=== PATIENT | female | born 1990 | race American Indian/Alaskan Native ===

== ENCOUNTER 2016-08-09 10:58 | Outpatient (CLI) | payer MEDICAID ==
[2016-08-09] MEDS ORDERED: LACTATED RINGERS 500 ML IV ONE (11:08)
[2016-08-09 11:24] LABS: Urine Drugs of Abuse Note Disclamer
[2016-08-09] MEDS ORDERED: LACTATED RINGERS 1,000 ML ONE ×2 (11:29→12:47)
[2016-08-09 11:40] LABS: Bacteria,Urine 1+ /HPF (Negative); Bilirubin,Urine NEG (Negative); Blood,Urine NEG (Negative); Ketones,Urine 80 mg/dL (Negative); Leukocyte Esterase,Urine NEG (Negative); Mucus,Urine 3+ /HPF; Nitrite,Urine NEG (Negative); Urobilinogen,Urine < 2.0 mg/dL (<2.0)
[2016-08-09] MEDS ORDERED: LACTATED RINGERS 1,000 ML IV ONE ×2 (12:45→13:30)
[2016-08-09] MEDS ORDERED: ZOFRAN IV ONE (13:00)
[2016-08-09 13:18] LABS: Eosinophils % (Auto) 0.2 % (0.0-4.3); Hematocrit 27.4 % (30.3-42.9); Hemoglobin 8.6 gm/dl (10.1-14.3); Mean Corpuscular HGB Conc 31 % (30-34); Mean Corpuscular Volume 79 fl (79-97); Platelet Count 178 K/mm3 (140-440); Red Blood Count 3.47 M/mm3 (3.65-5.03); Red Cell Distribution Width 14.7 % (13.2-15.2); White Blood Count 7.3 K/mm3 (4.5-11.0)
[2016-08-09 13:23] LABS: Mean Corpuscular Hemoglobin 25 pg (28-32)
[2016-08-09 13:42] LABS: Alanine Aminotransferase 6 units/L (7-56); Albumin 3.3 g/dL (3.9-5); Albumin/Globulin Ratio 1.2 %; Alkaline Phosphatase 51 units/L (35-129); Amylase 50 units/L (27-131); Anion Gap 18 mmol/L; Bilirubin,Total 0.3 mg/dL (0.1-1.2); Blood Urea Nitrogen 7 mg/dL (7-17); Calcium 8.3 mg/dL (8.4-10.2); Carbon Dioxide 22 mmol/L (22-30); Chloride 100.7 mmol/L (98-107); Glucose 82 mg/dL (65-100); Lipase 21 units/L (13-60); Potassium 3.7 mmol/L (3.6-5.0); Sodium 137 mmol/L (137-145)
== END 2016-08-09 14:53 | disposition home or self-care (01) ==
LOC: TRG 10:58
PROVIDERS: ATTEND Obstetrics & Gynecology
DX: O26.892 Other specified pregnancy related conditions, second trimester (principal); Z3A.22 22 weeks gestation of pregnancy
CPT/HCPCS: 36415; 80053; 80307; 81001; 82150; 83690; 85025; 96360; 96361; 96374; J2405; J7120

== ENCOUNTER 2017-12-02 11:49 | Emergency (ER) | payer MEDICAID ==
[2017-12-02 11:57] VITALS: BP 119/75
[2017-12-02] MEDS ORDERED: ROBITUSSIN PO ONE (12:29)
[2017-12-02] MEDS ORDERED: TYLENOL PO ONE (12:29)
--- NOTE | 2017-12-02 13:10 | Emergency Department Report ---
Minor Respiratory - HPI Chief Complaint: Upper Respiratory Infection Stated Complaint: HURTING NOT EATING, CHEST PAIN Time Seen by Provider: 12/02/17 12:23 Duration: 3 Days Pain Location: Throat, Nose Severity: mild Minor Respiratory: Yes Rhinorrhea, Yes Sore Throat, Yes Able to Tolerate Fluids , Yes Cough, Yes Sick Contacts (daughter and niece was sick last week), No Ear Pain, No Hemoptysis, No Chest Pain, No Shortness of Breath, No Fever Other History: This is a 27-year-old -[place] female who presents with sore throat, congestion, sinus pressure, cough and nausea. Patient reports symptoms started 3 days ago initially with only a sore throat which she is taking Senior's with no improvement of symptoms. Patient reports Sunday symptoms increase she was having pain with swallowing solids. She started taken ibuprofen on with no improvement of symptoms. Patient reports her daughter and niece both had upper respiratory infection last week but now feeling better. Last menstrual period 09/21/2017. Patient is concerned she may possibly be . A1. Denies fever, vomiting, ear pain, dizziness , and abdominal pain. ED Review of Systems ROS: Stated complaint: HURTING NOT EATING, CHEST PAIN Other details as noted in HPI Constitutional: denies: chills, fever ENT: throat pain, congestion. denies: ear pain, dental pain, hearing loss, epistaxis Respiratory: cough. denies: shortness of breath, wheezing Cardiovascular: denies: chest pain, palpitations, edema, syncope Gastrointestinal: nausea. denies: abdominal pain, vomiting, diarrhea Neurological: denies: headache, weakness, numbness, paresthesias Psychiatric: denies: anxiety, depression ED Past Medical Hx - Past Medical History Hx Hypertension: No Hx Diabetes: No Hx Deep Vein Thrombosis: No Hx Renal Disease: No Hx Sickle Cell Disease: No Hx Seizures: No Hx Asthma: Yes Hx HIV: No - Surgical History Past Surgical History?: No - Social History Smoking Status: Never Smoker Substance Use Type: None - Medications Home Medications: Home Medications Medication Instructions Recorded Confirmed Last Taken Type Ondansetron [Zofran Odt] 4 mg PO TID PRN #15 tab.rapdis 12/02/17 Unknown Rx Minor Respiratory Exam - Exam General: Vital signs noted. No distress. Alert and acting appropriately. HEENT: Yes Pharyngeal Erythema (tonsils enlarged without exudate), Yes Moist Mucous Membranes, Yes Rhinorrhea (turbinate is mildly congested with clear discharge), No Pharyngeal Exudates, No Conjuctival Injection, No Frontal Tenderness, No Maxillary Tenderness Ear: Neither TM Bulge, Neither TM Erythema, Neither EAC Pain, Neither EAC Discharge Neck: Yes Supple, No Adenopathy Lungs: Yes Good Air Exchange, No Wheezes, No Ronchi, No Stridor, No Cough, No Labored Respirations, No Retractions, No Use of Accessory Muscles, No Other Abnormal Lung Sounds Heart: Yes Regular, No Murmur Abdomen: Yes Normal Bowel Sounds, No Tenderness, No Peritoneal Signs Skin: No Rash, No Edema Neurologic: Alert and oriented, no deficits. Musculoskeletal: Unremarkable. ED Course Vital Signs 12/02/17 11:52 Temperature 9837 F H Pulse Rate 84 Respiratory 19 Rate Blood Pressure 119/75 O2 Sat by Pulse 99 Oximetry ED Medical Decision Making - Medical Decision Making 27 y.o. female that presents with URI symptoms. Patient examined by me and stable. No distress noted. Vitals normal. Urinalysis and urine hCg obtained. Given guaifenesin 200 mg po and tylenol 650 mg po once in ER. Urine hCg positive, all other labs WNL. Reviewed results with patient. Discharged home stable. Start zofran 4 mg po tid prn for nausea. Encouraged to do supportive care for URI. Follow up with PAPER MACHINE SUPERVISOR in 2-3 days. Critical care attestation.: If time is entered above; I have spent that time in minutes in the direct care of this critically ill patient, excluding procedure time. ED Disposition Clinical Impression: Upper respiratory infection, viral, confirmed by positive urine test Disposition: TO HOME OR SELFCARE Is pt being admited?: No Does the pt Need Aspirin: No Condition: Stable Instructions: Morning Sickness (ED), (ED), Upper Respiratory Infection (ED) Additional Instructions: Increase fluid intake and rest. Wash hands frequently. Continue taking tylenol to control fever and pain. F/U with PAPER MACHINE SUPERVISOR and Primary Care Provider in 2-3 days. Return to ER if fever, SOB, or difficulty breathing after 48 hours of supportive care. Prescriptions: Ondansetron [Zofran Odt] 4 mg PO TID PRN #15 tab.rapdis PRN Reason: Nausea Referrals: FRANCIA PINEDA MD [Primary Care Provider] - 3-5 Days [facility] [Provider [facility]] - 3-5 Days [facility] [Provider Group] - 3-5 Days Time of Disposition: 13:33 Print Language: CYPRIOT
[2017-12-02 13:17] LABS: HCG Qualitative,Urine Positive (Negative)
[2017-12-02 13:18] LABS: Bacteria,Urine 2+ /HPF (Negative); Bilirubin,Urine NEG (Negative); Blood,Urine SM (Negative); Color,Urine Yellow (Yellow); Mucus,Urine 2+ /HPF
== END 2017-12-02 13:52 | disposition home or self-care (01) ==
LOC: ED 11:49
DX: O99.511 Diseases of the respiratory system complicating pregnancy, first trimester (principal); J06.9 Acute upper respiratory infection, unspecified; J45.909 Unspecified asthma, uncomplicated; Z3A.01 Less than 8 weeks gestation of pregnancy
CPT/HCPCS: 81001; 81025; 99283

== ENCOUNTER 2017-12-26 21:19 | Emergency (ER) | payer OTHER, MEDICAID ==
[2017-12-26 21:45] VITALS: BP 103/68
[2017-12-26] MEDS ORDERED: TYLENOL ONE (21:51)
[2017-12-26] MEDS: TYLENOL PO ONE (21:55)
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
== END 2017-12-27 01:40 | disposition home or self-care (01) ==
LOC: ED 21:19
DX: O9A.211 Injury, poisoning and certain other consequences of external causes complicating pregnancy, first trimester (principal); M54.6 Pain in thoracic spine; J45.909 Unspecified asthma, uncomplicated; V49.49XA Driver injured in collision with other motor vehicles in traffic accident, initial encounter; Y93.89 Activity, other specified; Y92.89 Other specified places as the place of occurrence of the external cause; Y99.8 Other external cause status
CPT/HCPCS: 36415; 76801; 76817; 84702

== ENCOUNTER 2018-01-03 05:49 | Emergency (ER) | payer MEDICAID, OTHER ==
[2018-01-03 06:27] LABS: Basophils % (Auto) 0.4 % (0.0-1.8); Eosinophils # (Auto) 0.1 K/mm3 (0.0-0.4); Eosinophils % (Auto) 0.9 % (0.0-4.3); Hematocrit 36.8 % (30.3-42.9); Hemoglobin 12.4 gm/dl (10.1-14.3); Lymphocytes # (Auto) 1.8 K/mm3 (1.2-5.4); Lymphocytes % (Auto) 29.1 % (13.4-35.0); Mean Corpuscular HGB Conc 34 % (30-34); Mean Corpuscular Hemoglobin 30 pg (28-32); Mean Corpuscular Volume 89 fl (79-97); Monocytes # (Auto) 0.4 K/mm3 (0.0-0.8); Monocytes % (Auto) 7.3 % (0.0-7.3); Platelet Count 169 K/mm3 (140-440); Red Blood Count 4.15 M/mm3 (3.65-5.03); Red Cell Distribution Width 14.2 % (13.2-15.2)
[2018-01-03 06:43] LABS: Alanine Aminotransferase 9 units/L (7-56); Albumin 3.6 g/dL (3.9-5); BUN/Creatinine Ratio 16; Blood Urea Nitrogen 8 mg/dL (7-17); Calcium 8.6 mg/dL (8.4-10.2); Hemolysis Index 4
[2018-01-03 08:48] LABS: Bilirubin,Urine NEG (Negative); Blood,Urine NEG (Negative); Color,Urine Yellow (Yellow); HCG Qualitative,Urine Positive (Negative); Mucus,Urine FEW /HPF; Protein,Urine <15 mg/dL mg/dL (Negative)
[2018-01-03] MEDS ORDERED: MACROBID PO ONE (10:17)
[2018-01-03] MEDS ORDERED: TYLENOL PO ONE (10:17)
--- NOTE | 2018-01-03 11:09 | Emergency Department Report ---
ED HPI - General Chief complaint: Abdominal Pain Stated complaint: ABD PAIN/13 WKS PREG Time Seen by Provider: 01/03/18 10:10 Source: patient Mode of arrival: Ambulatory Limitations: No Limitations - History of Present Illness Initial comments: 27-year-old female past medical history none, 13 weeks presents with complaint of one day of feeling slightly dizzy with lower abdominal pain radiating to back. Patient denies any vaginal bleeding. States she vomited once yesterday but does not feel nauseous at this moment. Patient is currently awake alert and oriented 3. Nonacute distress. Denies alcohol or drug use. Onset/Timin -: days(s) Location: abdomen Severity: moderate Quality: aching Consistency: intermittent Improves with: none Worsens with: none Associated symptoms: headache Vaginal bleeding: none :: Yes Number of weeks : 13 Last menstrual period: 10/13/17 - Related Data Previous Rx's Medication Instructions Recorded Last Taken Type Ondansetron [Zofran Odt] 4 mg PO TID PRN #15 tab.rapdis 12/02/17 Unknown Rx Acetaminophen [Acetaminophen TAB] 500 mg PO Q6HR PRN #20 tablet 01/03/18 Unknown Rx Nitrofurantoin Monohyd/M-Cryst 100 mg PO BID #14 capsule 01/03/18 Unknown Rx [Macrobid 100 mg Capsule] Ondansetron [Zofran Odt] 4 mg PO Q8H PRN #10 tab.rapdis 01/03/18 Unknown Rx Allergies Allergy/AdvReac Type Severity Reaction Status Date / Time morphine Allergy Itching Verified 01/03/18 05:57 ED Review of Systems ROS: Stated complaint: ABD PAIN/13 WKS PREG Other details as noted in HPI Constitutional: denies: chills, fever Eyes: denies: eye pain, eye discharge, vision change ENT: denies: ear pain, throat pain Respiratory: denies: cough, shortness of breath, wheezing Cardiovascular: denies: chest pain, palpitations Endocrine: no symptoms reported Gastrointestinal: denies: abdominal pain, nausea, diarrhea Genitourinary: denies: urgency, dysuria, discharge Musculoskeletal: denies: back pain, joint swelling, arthralgia Skin: denies: rash, lesions Neurological: denies: headache, weakness, paresthesias Psychiatric: denies: anxiety, depression Hematological/Lymphatic: denies: easy bleeding, easy bruising ED Past Medical Hx - Past Medical History Hx Hypertension: No Hx Diabetes: No Hx Deep Vein Thrombosis: No Hx Renal Disease: No Hx Sickle Cell Disease: No Hx Seizures: No Hx Asthma: Yes Hx HIV: No - Surgical History Past Surgical History?: No - Social History Smoking Status: Never Smoker Substance Use Type: None - Medications Home Medications: Home Medications Medication Instructions Recorded Confirmed Last Taken Type Ondansetron [Zofran Odt] 4 mg PO TID PRN #15 tab.rapdis 12/02/17 Unknown Rx Acetaminophen [Acetaminophen TAB] 500 mg PO Q6HR PRN #20 tablet 01/03/18 Unknown Rx Nitrofurantoin Monohyd/M-Cryst 100 mg PO BID #14 capsule 01/03/18 Unknown Rx [Macrobid 100 mg Capsule] Ondansetron [Zofran Odt] 4 mg PO Q8H PRN #10 tab.rapdis 01/03/18 Unknown Rx ED Physical Exam - General Limitations: No Limitations General appearance: alert, in no apparent distress - Head Head exam: Present: atraumatic, normocephalic - Eye Eye exam: Present: normal appearance, PERRL, EOMI - ENT ENT exam: Present: mucous membranes moist - Neck Neck exam: Present: normal inspection - Respiratory Respiratory exam: Present: normal lung sounds bilaterally. Absent: respiratory distress - Cardiovascular Cardiovascular Exam: Present: regular rate, normal rhythm. Absent: systolic murmur, diastolic murmur, rubs, gallop - GI/Abdominal GI/Abdominal exam: Present: soft, normal bowel sounds - Extremities Exam Extremities exam: Present: normal inspection - Back Exam Back exam: Present: normal inspection - Neurological Exam Neurological exam: Present: alert, oriented X3, CN II-XII intact, normal gait - Psychiatric Psychiatric exam: Present: normal affect, normal mood - Skin Skin exam: Present: warm, dry, intact, normal color. Absent: rash ED Course Vital Signs 01/03/18 01/03/18 01/03/18 05:57 09:26 11:45 Temperature 98.4 F 98.4 F Pulse Rate 75 62 Pulse Rate [ Lying] Respiratory 14 18 Rate Blood Pressure 111/66 Blood Pressure [Lying] Blood Pressure 112/73 [Right] O2 Sat by Pulse 100 100 Oximetry 01/03/18 01/03/18 12:15 12:19 Temperature 98.0 F Pulse Rate 72 Pulse Rate [ 72 Lying] Respiratory 18 Rate Blood Pressure Blood Pressure 114/60 [Lying] Blood Pressure 114/60 [Right] O2 Sat by Pulse 100 Oximetry ED Medical Decision Making - Lab Data Result diagrams: 01/03/18 06:16 01/03/18 06:16 - Medical Decision Making A/P: UTI 1-CBC and BMP are unremarkable, urinalysis positive for leukocyte esterase. Ultrasound consistent with IUP at approximately 13 weeks . Will treat empirically with macrobid 2-Tylenol when necessary 3-advised patient to remain well-hydrated area and I advised her to return to the ED for any unrelenting nausea vomiting fever chills or worsened abdominal pain with any associated vaginal bleeding 4- orthostatic vital signs normal Critical care attestation.: If time is entered above; I have spent that time in minutes in the direct care of this critically ill patient, excluding procedure time. ED Disposition Clinical Impression: Urinary tract infection Qualifiers: Urinary tract infection type: acute cystitis Hematuria presence: without hematuria Qualified Code(s): N30.00 - Acute cystitis without hematuria Disposition: DC- TO HOME OR SELFCARE Is pt being admited?: No Does the pt Need Aspirin: No Condition: Stable Instructions: Urinary Tract Infection in Women (ED), Abdominal Pain in (ED) Prescriptions: Acetaminophen [Acetaminophen TAB] 500 mg PO Q6HR PRN #20 tablet PRN Reason: Pain , Severe (7-10) Nitrofurantoin Monohyd/M-Cryst [Macrobid 100 mg Capsule] 100 mg PO BID #14 capsule Ondansetron [Zofran Odt] 4 mg PO Q8H PRN #10 tab.rapdis PRN Reason: Nausea And Vomiting Referrals: [facility] [Provider Group] - 3-5 Days Forms: Work/School Release Form(ED) Time of Disposition: 12:14
--- NOTE | 2018-01-03 11:52 | Ultrasound Report ---
FINAL REPORT EXAM: US OB < = 14 WEEKS FETUS HISTORY: preg w/abd pain COMPARISON: Obstetric ultrasound performed on 12/26/2017 TECHNIQUE: Transabdominal obstetric ultrasound was performed. FINDINGS: The uterus measures 16.5 x 6.7 x 10.5 centimeters and is anteverted. The cervix measures 4.5 centimeters and is closed. There is an anterior, somewhat low lying placenta. There is a single live intrauterine . heart rate is 145 beats per minute. [place]-rump length is 7.51 centimeters, corresponding to a gestational age of 13 weeks, 4 days, with estimated date of delivery of 07/07/2018. The right ovary measures 4.4 x 2.7 x 2.7 centimeters. There is a 2 centimeter thick-walled cyst within the right ovary that likely represents a corpus luteum cyst. The left ovary measures 3.3 x 1.9 x 2.2 centimeters and is normal in appearance. IMPRESSION: Single live intrauterine with gestational age of approximately 13 weeks, 4 days, with estimated date of delivery of 07/07/2018.
[2018-01-03 12:19] VITALS: BP 114/60
== END 2018-01-03 12:36 | disposition home or self-care (01) ==
LOC: ED 05:49
DX: O23.11 Infections of bladder in pregnancy, first trimester (principal); J45.909 Unspecified asthma, uncomplicated; Z88.5 Allergy status to narcotic agent; Z3A.13 13 weeks gestation of pregnancy
CPT/HCPCS: 36415; 76801; 80053; 81001; 81025; 85025; 87086

== ENCOUNTER 2021-12-02 09:14 | Emergency (ER) | payer MEDICAID | END 2021-12-03 00:26 | disposition left against medical advice (07) | LOC: ED 09:14 | DX: R10.9 Unspecified abdominal pain (principal); M54.9 Dorsalgia, unspecified; Z53.21 Procedure and treatment not carried out due to patient leaving prior to being seen by health care provider ==